=== PATIENT | male | born 1950 | race Caucasian/White ===

== ENCOUNTER 2018-03-08 12:28 | Day surgery (SDC) | payer OTHER | END 2018-03-10 10:59 | disposition home or self-care (01) | LOC: GIL 12:28 | DX: Z12.11 Encounter for screening for malignant neoplasm of colon (principal); K64.8 Other hemorrhoids; K57.90 Diverticulosis of intestine, part unspecified, without perforation or abscess without bleeding; E11.9 Type 2 diabetes mellitus without complications; E78.5 Hyperlipidemia, unspecified | CPT/HCPCS: 45378; 82962 ==